=== PATIENT | male | born 1955 | race Caucasian/White ===

== ENCOUNTER → 2017-12-17 | Outpatient (CLI) | payer OTHER | LOC: RAD 06:42 | DX: M41.84 Other forms of scoliosis, thoracic region (principal); M54.14 Radiculopathy, thoracic region ==

== ENCOUNTER → 2018-04-02 | Outpatient (CLI) | payer OTHER | LOC: CAT 08:23 | DX: J84.10 Pulmonary fibrosis, unspecified (principal) ==